=== PATIENT | female | born 1965 | race Caucasian/White ===

== ENCOUNTER 2017-11-14 16:01 | Emergency (ER) | payer OTHER ==
[~2017-11-14] VITALS: Ht 162.6 cm; Wt 70.3 kg
[2017-11-14] MEDS ORDERED: SYNTHROID175 MCG PO (16:08)
[2017-11-14] MEDS ORDERED: PROTONIX40 M1 PO (16:08)
[2017-11-14 16:37] LABS: URINE BILIRUBIN NEGATIVE (Negative); URINE BLOOD 2+ (Negative); URINE CLARITY CLEAR; URINE COLOR YELLOW; URINE GLUCOSE-RANDOM NEGATIVE (Negative); URINE KETONES TRACE (Negative); URINE LEUKOCYTES-REFLEX TRACE (Negative); URINE NITRITE-REFLEX NEGATIVE (Negative); URINE PROTEIN NEGATIVE (Negative); URINE SPECIFIC GRAVITY 1.025 (1.005-1.030); URINE UROBILINOGEN 0.2 E.U./dl (0.2-1.0)
[2017-11-14 16:48] LABS: MUCUS 0-3 Light strn/LPF (None Seen); SQUAMOUS >10 Many /LPF (0-3)
[2017-11-14 16:49] LABS: BACTERIA-REFLEX 1-9 Few /HPF (None Seen); CASTS None Seen /LPF (None Seen); CRYSTALS None Seen /LPF (None Seen); URINE RBC 3-10 Few /HPF (0-2)
[2017-11-14 16:50] LABS: URINE WBC-REFLEX 0-5 Rare /HPF (0-5)
[2017-11-14 16:53] LABS: ABSOLUTE EOSINOPHILS 0.1 thou/uL (0.0-0.7); ABSOLUTE LYMPHOCYTES 1.9 thou/uL (0.8-5.3); ABSOLUTE MONOCYTES 0.3 thou/uL (0.0-1.2); ABSOLUTE NEUTROPHILS 5.5 thou/uL (1.6-8.1); BASOPHILS 0.5 %; EOSINOPHILS 1.2 %; HEMOGLOBIN 13.8 gm/dL (12.0-15.0); LYMPHOCYTES 24.3 %; MCH 30.9 pg (26.0-34.0); MCHC 33.6 g/dL (28.0-37.0); MONOCYTES 3.5 %; MPV 8.3 fl. (7.2-11.1); NUCLEATED RBCS 0 /100WBC; PLATELET COUNT* 252 thou/uL (150-400); POLYS 70.5 %; RBC 4.45 mil/uL (4.20-5.00); RDW-CV 13.2 % (10.5-14.5); WBC 7.8 thou/uL (4.0-11.0)
[2017-11-14 17:01] LABS: ANION GAP 5 mmol/L (7-16); BUN 20 mg/dL (7-18); CALCIUM 8.7 mg/dL (8.5-10.1); CHLORIDE 106 mmol/L (98-107); CO2 32 mmol/L (21-32); CREATININE 1.1 mg/dL (0.6-1.3); GLUCOSE 135 mg/dL (70-99); POTASSIUM 3.6 mmol/L (3.5-5.1); SODIUM 143 mmol/L (136-145)
[2017-11-14 17:08] LABS: ALBUMIN 3.6 g/dL (3.4-5.0); ALKALINE PHOSPHATASE 90 U/L (46-116); SGOT 19 U/L (15-37); SGPT 39 U/L (30-65); TOTAL BILIRUBIN 0.5 mg/dL (<0.1-1.0); TROPONIN-I LEVEL <0.06 ng/mL (<0.06)
[2017-11-14 18:46] VITALS: BP 117/70
--- NOTE | 2017-11-15 12:41 | EKG ---
[place] [address] ELECTROCARDIOGRAM REPORT Name: GUME BAPTISTE Room: [facility]#: [id number] Admission: 11/14/17 Attend Phys: Discharge: 11/14/17 Date of : 61 Report #: [id number] THIS REPORT FOR: //name// 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
== END 2017-11-14 18:47 | disposition home or self-care (01) ==
LOC: M.ERS 16:01
PROVIDERS: Personal Emergency Response Attendant
DX: R19.7 Diarrhea, unspecified (principal); R29.0 Tetany; E03.9 Hypothyroidism, unspecified; Z87.442 Personal history of urinary calculi; Z88.2 Allergy status to sulfonamides